=== PATIENT | female | born 2005 | race Caucasian/White ===

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

== ENCOUNTER → 2024-02-21 | Outpatient (CLI) | payer OTHER ==
[~2024-02-21] MED LIST changes: +IBUP400 PO
== END ==
LOC: LAB 15:33 → LAB SHORT 15:33
DX: N39.0 Urinary tract infection, site not specified (principal)
CPT/HCPCS: 87077; 87086; 87186